=== PATIENT | female | born 1945 | race Two or more races ===

== ENCOUNTER 2018-11-08 20:17 | Emergency (ER) | payer OTHER ==
[~2018-11-08] VITALS: Ht 167.6 cm; Wt 91.0 kg
[2018-11-08] MEDS ORDERED: ACETAMINOPHEN 325MG TABLET PO STA (20:31)
[2018-11-08] MEDS ORDERED: NITROGLYCERIN 0.4MG TABLET SL SL PRN (20:45)
[2018-11-08] MEDS ORDERED: ASPIRIN 81MG TABLET PO ONE (20:45)
[2018-11-08 21:09] LABS: BASOPHILS % 1.3 % (0.0-2.0); HEMATOCRIT. 39.5 % (36.0-48.0); HEMOGLOBIN. 12.5 g/dL (12.0-16.0); LYMPHOCYTES % 24.5 % (20.0-50.0); MEAN CORPUSCULAR VOLUME 78.9 fL (81.0-99.0); MEAN PLATELET VOLUME 9.5 fl (7.4-10.4); MONOCYTES % 7.4 % (2.0-8.0); NEUTROPHILS % 64.8 % (40.0-76.0); PLATELET 278 x1000/uL (130-400); RED CELL DISTRIBUTION WIDTH 15.9 % (11.6-14.6)
[2018-11-08 21:15] LABS: CHLORIDE 110 mEq/L (98-107)
[2018-11-08 22:56] VITALS: BP 139/96
== END 2018-11-08 22:56 | disposition home or self-care (01) ==
LOC: ER 20:17
DX: R07.9 Chest pain, unspecified (principal); I10 Essential (primary) hypertension; Z90.710 Acquired absence of both cervix and uterus
CPT/HCPCS: 36415; 71045; 83880; 84484; 93005; 99284